=== PATIENT | female | born 1975 | race Caucasian/White ===

== ENCOUNTER 2018-09-21 17:32 | Emergency (ER) | payer BC ==
[~2018-09-21] VITALS: Ht 170.2 cm; Wt 72.6 kg
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
[2018-09-21] MEDS ORDERED: CT SWABBABLE VALVE TRANS SET 1 EA INFUS.SET MC ONE (18:28)
[2018-09-21] MEDS ORDERED: IOHEXOL 50 ML IV ONE (18:28)
[2018-09-21] MEDS ORDERED: IV NS 0.9% 250 ML IV ONE (18:28)
[2018-09-21 18:29] LABS: BASOPHILS % (AUTO) 0.6 % (0.0-2.0); EOSINOPHILS % (AUTO) 0.1 % (0.0-6.0); HEMATOCRIT 40 % (33-45); HEMOGLOBIN 13.5 g/dL (11.5-14.8); LYMPHOCYTES # (AUTO) 1.3 /CMM (0.8-4.8); LYMPHOCYTES % (AUTO) 20.7 % (20.0-44.0); MEAN CORPUSCULAR HGB CONC 34 g/dl (31.0-36.0); MEAN CORPUSCULAR VOLUME 99 fL (82-100); MONOCYTES # (AUTO) 0.4 /CMM (0.1-1.30); MONOCYTES % (AUTO) 6.5 % (2.0-12.0); NEUTROPHILS # (AUTO) 4.5 /CMM (1.8-8.9); NEUTROPHILS % (AUTO) 72.1 % (43.0-81.0); PLATELET COUNT (AUTO) 250 /CMM (150-450); RED BLOOD CELL COUNT(AUTO) 4.03 MIL/uL (4.0-5.2); WHITE BLOOD COUNT (AUTO) 6.3 K/uL (4.3-11.0)
[2018-09-21] MEDS ORDERED: IOHEXOL-300 100 ML VIAL IV ONE (18:29)
[2018-09-21 18:51] LABS: CALCIUM, SERUM 9.1 mg/dL (8.5-10.1); CREATININE 0.8 mg/dL (0.6-1.3); POTASSIUM 3.6 mmol/L (3.5-5.1)
--- NOTE | 2018-09-21 19:15 | NUR ---
PT TAKEN TO RADIOLOGY VIA [facility]
--- NOTE | 2018-09-21 19:28 | NUR ---
PT BACK FROM RADIOLOGY, RONI ESTRADA
--- NOTE | 2018-09-21 21:17 | NUR ---
IV removed. Catheter intact and site benign. Pressure and 4x4 applied to site. No bleeding noted.Patient discharged to home in stable condition. Written and verbal after care instructions given. Patient verbalizes understanding of instruction.
[2018-09-21 21:27] VITALS: BP 143/86
== END 2018-09-21 21:17 | disposition home or self-care (01) ==
LOC: ER 17:34
DX: R51 Headache (principal); R10.10 Upper abdominal pain, unspecified; Z41.1 Encounter for cosmetic surgery; V49.9XXA Car occupant (driver) (passenger) injured in unspecified traffic accident, initial encounter; Y93.89 Activity, other specified; Y92.410 Unspecified street and highway as the place of occurrence of the external cause; Y99.8 Other external cause status
CPT/HCPCS: 36415; 70450; 71260; 72125; 74177; 80048; 84703; 85025; 99284; J7050; Q9967 ×2